=== PATIENT | female | born 1940 | race Two or more races ===

== ENCOUNTER 2024-09-03 18:33 | Emergency (ER) | payer MEDICARE, BC ==
[~2024-09-03] VITALS: Ht 152.4 cm; Wt 41.7 kg
[2024-09-03 20:03] LABS: BASOPHILS % (AUTO) 0.4 % (0.0-2.0); EOSINOPHILS # (AUTO) 0.1 K/uL (0.0-0.7); EOSINOPHILS % (AUTO) 1.1 % (0.0-7.0); HEMATOCRIT 34.7 % (31.2-41.9); HEMOGLOBIN 11.8 g/dL (10.9-14.3); LYMPHOCYTES # (AUTO) 0.9 K/uL (0.8-4.8); LYMPHOCYTES % (AUTO) 18.9 % (20.5-51.5); MEAN CORPUSCULAR HEMOGLOBIN 31.2 uug (24.7-32.8); MEAN CORPUSCULAR HGB CONC 34 g/dL (32.3-35.6); MEAN CORPUSCULAR VOLUME 91.7 fL (75.5-95.3); MONOCYTES # (AUTO) 0.4 K/uL (0.1-1.30); MONOCYTES % (AUTO) 9.2 % (0.0-11.0); NEUTROPHILS # (AUTO) 3.4 K/uL (1.8-8.9); NEUTROPHILS % (AUTO) 70.4 % (38.5-71.5); PLATELET COUNT (AUTO) 227 K/uL (179-408); RED BLOOD CELL COUNT(AUTO) 3.78 MIL/uL (3.63-4.92); RED CELL DISTRIBUTION WIDTH 14.5 % (12.3-17.7); WHITE BLOOD COUNT (AUTO) 4.8 K/uL (3.8-11.8)
[2024-09-03] MEDS ORDERED: CLOPIDOGREL 75 MG TABLET ONE (20:06)
[2024-09-03] MEDS ORDERED: NITROGLYCERIN OINT 1 GM PACKET TP ONE (20:08)
[2024-09-03 20:11] LABS: CALCIUM 8.8 mg/dL (8.5-10.1); CARBON DIOXIDE 28 mmol/L (21-32); CHLORIDE 103 mmol/L (98-107); CREATININE 0.6 mg/dL (0.6-1.3); DIFFERENTIAL COMMENT 1; GLUCOSE 91 mg/dL (74-106); POTASSIUM 4.1 mmol/L (3.5-5.1); SODIUM SERUM 138 mmol/L (136-145); UREA NITROGEN, BLOOD 16 mg/dL (7-18)
[2024-09-03] MEDS: CLOPIDOGREL 75 MG TABLET PO ONE (20:21)
[2024-09-03] MEDS: NITROGLYCERIN OINT 1 GM PACKET TP ONE (20:22)
[2024-09-03 20:25] LABS: ALANINE AMINOTRANSFERASE 28 U/L (14-59); ALBUMIN 3.3 g/dL (3.4-5.0); ALKALINE PHOSPHATASE 89 U/L (50-136); ASPARTATE AMINOTRANSFERASE 18 U/L (15-37); BILIRUBIN,DIRECT 0.2 mg/dL (0.0-0.2); BILIRUBIN,TOTAL 0.4 mg/dL (0.2-1.0); NT-PRO BNP 818 pg/mL (0-125); TOTAL PROTEIN, SERUM 7.3 g/dL (6.4-8.2)
[2024-09-03] MEDS ORDERED: IOHEXOL 300MG/ML 100 ML INFUS..BTL ONE (22:01)
[2024-09-03] MEDS ORDERED: SWABABLE VALVE TRANSFER SET EA MC ONE (22:01)
[2024-09-03] MEDS ORDERED: IV NORMAL SALINE 250 ML IV ONE (22:01)
[2024-09-04 01:54] LABS: *BILIRUBIN,URIN NEGATIVE (NEGATIVE); *BLOOD, URINE NEGATIVE (NEGATIVE); *CLARITY,URINE CLEAR (CLEAR); *COLOR,URINE YELLOW (YELLOW); *KETONES,URINE NEGATIVE (NEGATIVE); *PROTEIN,URINE NEGATIVE (NEGATIVE); *UROBILINOGEN,URINE 0.2 E.U./dl (NORMAL); LEUKOCYTE ESTERASE ,URINE NEGATIVE (NEGATIVE); NITRITE, URINE NEGATIVE (NEGATIVE); UGLUCOSE NEGATIVE (NEGATIVE)
[2024-09-04] MEDS ORDERED: ALPRAZOLAM 0.5 MG TABLET ONE (01:58)
[2024-09-04] MEDS: ALPRAZOLAM 0.25 MG TABLET PO ONE (02:00)
[2024-09-04 10:58] VITALS: BP 120/54; TEMP 98.8; O2SAT 99
== END 2024-09-04 11:00 | disposition home or self-care (01) ==
LOC: ER 18:33
DX: R11.0 Nausea (principal); E78.5 Hyperlipidemia, unspecified; F41.9 Anxiety disorder, unspecified; Z88.1 Allergy status to other antibiotic agents; Z88.2 Allergy status to sulfonamides; Z88.5 Allergy status to narcotic agent; Z88.6 Allergy status to analgesic agent; Z88.7 Allergy status to serum and vaccine; Z88.8 Allergy status to other drugs, medicaments and biological substances; R07.89 Other chest pain
CPT/HCPCS: 36415; 71045; 71260; 84484; 85025; 85730; A4606; A4663; Q9967